=== PATIENT | female | born 1980 | race Caucasian/White ===

== ENCOUNTER 2021-06-29 11:27 | Emergency (ER) | payer OTHER ==
[~2021-06-29] VITALS: Ht 165.1 cm; Wt 131.5 kg
[~2021-06-29 11:27] MED LIST: BUCALSEP SPRAY30 ML MM; LEVAQUIN750 MG PO; Q-DRYL12.5 MG/5 PO
[2021-06-29] MEDS ORDERED: NOVOLOG100 UNIT/1 (12:15)
[2021-06-29] MEDS ORDERED: TOPROL XL100 M1 (12:15)
[2021-06-29] MEDS ORDERED: LEXAPRO5 MG (12:16)
[2021-06-29] MEDS ORDERED: SIMVASTATIN5 MG (12:16)
== END 2021-06-29 16:44 | disposition home or self-care (01) ==
LOC: ER 11:27
DX: B34.9 Viral infection, unspecified (principal); Z88.0 Allergy status to penicillin; Z88.1 Allergy status to other antibiotic agents; I10 Essential (primary) hypertension; E78.5 Hyperlipidemia, unspecified; Z20.822 Contact with and (suspected) exposure to COVID-19

== ENCOUNTER 2025-02-04 16:44 | Inpatient (IN) | payer OTHER ==
[~2025-02-04 16:44] MED LIST changes: +LEXAPRO5 MG; +NOVOLOG100 UNIT/1; +SIMVASTATIN5 MG; +TOPROL XL100 M1
[2025-02-04 17:24] VITALS: BP 134/82
[2025-02-04 18:59] LABS: BASO % 0.3 % (0.1-1.2); EOS # 0.14 (0.04-0.54); EOS % 0.9 % (0.7-7.0); LYMPH # 2.08 (1.18-3.74); LYMPH % 12.7 % (19.3-53.1); MEAN PLATELET VOLUME 10.70 fl (9.4-12.4); MONO # 0.78 (0.24-0.82); MONO % 4.7 % (4.7-12.5); NEUT # 13.34 (1.56-6.13); NEUT % 81.1 % (34.0-71.1); RED CELL DISTRIBUTION WIDTH 14.3 % (11.6-14.4)
[2025-02-04 19:24] LABS: INR 1.02
[2025-02-04 19:29] LABS: ALT/SGPT 31.0 U/L (12-78); AST/SGOT 15.0 U/L (15-37); BILIRUBIN TOTAL 0.31 mg/dL (0.3-1.2); BUN CREA RATIO 17.0 (7.0-25.0); CREATININE SERUM 0.76 mg/dL (0.55-1.02); GFR 82.67; GLOBULINA 4.0 G/DL (2.4-3.5); OSMOLALITY SERUM 288.0 MOSM/KG (275-295)
[2025-02-04 19:30] LABS: GLUCOSE FASTING 243.0 mg/dL (65-100)
[2025-02-04] MEDS ORDERED: METOPROLOL SUCCINATE 25 MG TAB.SR.24H PO SCH (21:00)
[2025-02-04] MEDS ORDERED: INSULIN GLARGINE,HUM.REC.ANLOG 1,000 UNITS/10 ML UNITS SUBCUTANEO SCH (21:00)
[2025-02-04 21:41] LABS: URINE APPEARANCE Clear; URINE BILIRRUBIN Negative (NEGATIVE); URINE BLOOD Large; URINE COLOR Yellow; URINE LEUKOCYTE Negative; URINE NITRATE Negative; URINE PROTEIN Trace (NEGATIVE); URINE UROBILINOGEN 0.2 E.U./dl
[2025-02-04 21:44] LABS: URINE BACTERIA 42.3 uL (0.0-1933); URINE EPITHELIAL CELLS 2.4 uL (0.0-38.8); URINE RBC 836.8 uL (0.0-20.8); URINE WBC 7.0 uL (0.0-23.2)
[2025-02-04 21:49] LABS: URINE CAST 0.00 uL (0.0-1.40); URINE GLUCOSE >=1000 MG/DL (NEGATIVE); URINE KETONE 80 (NEGATIVE)
[2025-02-05 02:16] VITALS: BP 130/75
[2025-02-05 07:40] VITALS: BP 134/82; O2SAT 99
[2025-02-05] MEDS ORDERED: INSULIN LISPRO 1,000 UNIT/10 ML UNITS SUBCUTANEO SCH (08:00)
[2025-02-05] MEDS ORDERED: INSULIN GLARGINE,HUM.REC.ANLOG 1,000 UNITS/10 ML UNITS SUBCUTANEO SCH (09:00)
[2025-02-05] MEDS ORDERED: PATIENTS OWN MEDICATION (MEDICAMENTO EN PISO) OP SCH ×2 (09:00→21:00)
[2025-02-05] MEDS ORDERED: ATORVASTATIN CALCIUM 10 MG TABLET PO SCH (09:00)
[2025-02-05] MEDS ORDERED: INSULIN LISPRO 1,000 UNIT/10 ML UNITS SUBCUTANEO PRN (11:15)
[2025-02-05] MEDS ORDERED: DEXTROSE 50 % IN WATER 0.5 G/ML DISP.SYRIN IV PRN (11:15)
[2025-02-05] MEDS ORDERED: ENALAPRILAT DIHYDRATE 1.25 MG/ML VIAL IV PRN (11:15)
[2025-02-05 17:11] VITALS: BP 112/71
[2025-02-06 01:29] VITALS: BP 128/79
[2025-02-06] MEDS ORDERED: POVIDONE-IODINE 118 ML BOTT TOP ONE (07:34)
[2025-02-06] MEDS ORDERED: CEFAZOLIN SODIUM 1,000 MG VIAL IV ONE (09:15)
[2025-02-06] MEDS ORDERED: SUGAMMADEX SODIUM 200 MG/2 ML VIAL IV ONE (11:53)
[2025-02-06] MEDS ORDERED: MORPHINE SULFATE 4 MG/ML VIAL IV PRN (12:15)
[2025-02-06] MEDS ORDERED: ONDANSETRON HCL 2 MG/ML VIAL ONE (14:05)
[2025-02-06] MEDS ORDERED: CLINDAMYCIN PHOSPHATE 900 MG in 0.9 % SODIUM CHLORIDE 100 ML IV SCH (17:00)
[2025-02-06 19:25] VITALS: BP 140/83
[2025-02-06] MEDS ORDERED: ONDANSETRON HCL 2 MG/ML VIAL IV PRN (23:30)
[2025-02-07] VITALS: BP 149/84
[2025-02-07 02:03] LABS: BASO % 0.1 % (0.1-1.2); EOS # 0.00 (0.04-0.54); EOS % 0.0 % (0.7-7.0); LYMPH # 0.93 (1.18-3.74); LYMPH % 4.9 % (19.3-53.1); MEAN PLATELET VOLUME 10.50 fl (9.4-12.4); MONO # 0.90 (0.24-0.82); MONO % 4.8 % (4.7-12.5); NEUT # 16.89 (1.56-6.13); NEUT % 89.8 % (34.0-71.1); RED CELL DISTRIBUTION WIDTH 13.9 % (11.6-14.4)
[2025-02-07] MEDS ORDERED: OxyCODONE HCL 5 MG TABLET (ROXICODONE) PO PRN (06:15)
[2025-02-07 08:18] VITALS: BP 135/75
[2025-02-07] MEDS ORDERED: RINGERS SOLUTION,LACTATED 1,000 ML IV SCH (10:30)
[2025-02-07 16:00] VITALS: BP 138/78
[2025-02-08] VITALS: BP 115/73
[2025-02-08 08:00] VITALS: BP 110/69
[2025-02-08 16:23] VITALS: BP 120/74
[2025-02-09] VITALS: BP 102/61
[2025-02-09] MEDS ORDERED: IBU800 MG PO (07:29)
[2025-02-09] MEDS ORDERED: IBUPROFEN800 MG PO (07:48)
[2025-02-09 08:33] VITALS: BP 106/70
== END 2025-02-09 09:55 | disposition home or self-care (01) | DRG 743 ==
LOC: OB/GYN 16:44
PROVIDERS: ADMIT Specialist; ATTEND Specialist
PROC: 0UT20ZZ Resection of Bilateral Ovaries, Open Approach (ICD-10-PCS; 2025-02-06)
PROC: 0UT70ZZ Resection of Bilateral Fallopian Tubes, Open Approach (ICD-10-PCS; 2025-02-06)
PROC: 0UT90ZL Resection of Uterus, Supracervical, Open Approach (ICD-10-PCS; principal; 2025-02-06 09:30)
DX: D25.1 Intramural leiomyoma of uterus (principal); N72 Inflammatory disease of cervix uteri; E11.9 Type 2 diabetes mellitus without complications; I10 Essential (primary) hypertension; N93.9 Abnormal uterine and vaginal bleeding, unspecified; D64.9 Anemia, unspecified; Z90.710 Acquired absence of both cervix and uterus; Z90.79 Acquired absence of other genital organ(s); Z90.722 Acquired absence of ovaries, bilateral